=== PATIENT | female | born 1960 | race Caucasian/White ===

== ENCOUNTER 2017-04-27 08:33 | Emergency (ER) | payer SELFPAY ==
[~2017-04-27] VITALS: Ht 170.2 cm; Wt 75.0 kg
[~2017-04-27 08:33] MED LIST: ALBUTEROL S2.5 MG/.5 IN; ALBUTEROL SUL0.083 % IN; AMOXICILLIN500 MG PO; CLEOCIN150 MG PO; DILAUDID 2MG2 MG/TA1 PO; FLEXERIL OR; MORPHINE SUL30 M3 PO; MUCINEX600 MG PO; MULTI VIT PO; NAPROSYN500 MG OR; NO MEDS; NORCO1 TA1 PO; ULTRAM50 MG OR; ZOFRAN4 MG/TAB PO
[2017-04-27] MEDS ORDERED: DILAUDID8 MG PO (08:52)
[2017-04-27] MEDS ORDERED: MORPHINE SUL30 MG PO (08:52)
[2017-04-27 10:13] LABS: HEMATOCRIT 39.1 % (37.0-47.0); HEMOGLOBIN 12.9 g/dl (12.0-16.0); IMMATURE GRANULOCYTES 0.3 % (0.0-1.0); MEAN CELL VOLUME 85.4 fL CALC (80.0-100.0); MEAN CORPUSCULAR HGB 28.2 pG CALC (26.0-32.0); NEUT# 4.92 thou/uL (2.00-7.15); RED BLOOD COUNT 4.58 mill/uL (4.20-5.60); RED CELL DISTRI WIDTH 13.2 % (11.5-15.5)
[2017-04-27 10:20] LABS: ANION GAP 17 (6-22 (CALC)); BUN 16 mg/dL (7-17); BUN/CREATININE RATIO 19 (12-20 (CALC)); CARBON DIOXIDE 23 mmol/l (22-30); CHLORIDE 106 mmol/l (95-108); CREATININE 0.8 mg/dL (0.5-1.0); GFR > 60 ML/MIN (>=60 (CALC)); GFR FOR AFR.AMER. > 60 ML/MIN (>=60 (CALC)); GLUCOSE 78 mg/dL (65-105); LIPASE 65 u/l (23-300); POTASSIUM 3.7 mmol/l (3.5-5.1); SODIUM 142 mmol/l (137-146)
[2017-04-27] MEDS ORDERED: PERCOCET 5/321 COMBO PO (11:21)
[2017-04-27 11:50] VITALS: BP 116/66
== END 2017-04-27 11:50 | disposition home or self-care (01) | DRG 552 ==
LOC: ED 08:33
PROVIDERS: Emergency Medicine
DX: M54.42 Lumbago with sciatica, left side (principal); F17.210 Nicotine dependence, cigarettes, uncomplicated; J45.909 Unspecified asthma, uncomplicated

== ENCOUNTER 2017-08-31 09:53 | Emergency (ER) | payer MEDICAID ==
[~2017-08-31] VITALS: Ht 170.2 cm; Wt 80.0 kg
[~2017-08-31 09:53] MED LIST changes: +DILAUDID8 MG PO; +MORPHINE SUL30 MG PO; +PERCOCET 5/321 COMBO PO
[2017-08-31] MEDS ORDERED: CIPROFLOXACN750 MG PO (10:18)
[2017-08-31] MEDS ORDERED: CORTISPORIN OTI10 ML AS (10:20)
[2017-08-31 10:26] VITALS: BP 130/73
[2017-09-01] MEDS ORDERED: PENICILLN VK500 MG PO (15:38)
[2017-09-01] MEDS ORDERED: PERCOCET 5/325M1 TAB PO (15:38)
== END 2017-08-31 10:30 | disposition home or self-care (01) | DRG 156 ==
LOC: ED 09:53
DX: H60.502 Unspecified acute noninfective otitis externa, left ear (principal); H92.02 Otalgia, left ear

== ENCOUNTER 2017-09-01 15:04 | Emergency (ER) | payer MEDICAID ==
[~2017-09-01] VITALS: Ht 170.2 cm; Wt 77.2 kg
[~2017-09-01 15:04] MED LIST changes: +CIPROFLOXACN750 MG PO; +CORTISPORIN OTI10 ML AS
[2017-09-01] MEDS ORDERED: PERCOCET 5/325M1 TAB PO (15:38)
[2017-09-01] MEDS ORDERED: PENICILLN VK500 MG PO (15:38)
[2017-09-01 15:50] VITALS: BP 110/60
== END 2017-09-01 15:55 | disposition home or self-care (01) | DRG 159 ==
LOC: ED 15:04
DX: K08.89 Other specified disorders of teeth and supporting structures (principal); F17.210 Nicotine dependence, cigarettes, uncomplicated; R60.9 Edema, unspecified; R68.84 Jaw pain; R11.0 Nausea

== ENCOUNTER 2018-09-02 15:45 | Emergency (ER) | payer MEDICAID ==
[~2018-09-02] VITALS: Ht 170.2 cm; Wt 80.9 kg
[~2018-09-02 15:45] MED LIST changes: +CYMBALTA30 MG PO; +DILAUDID PO; +FLEXERIL5 MG PO; +PENICILLN VK500 MG PO; +PERCOCET 5/325M1 TAB PO
[2018-09-02 18:30] VITALS: BP 91/55
== END 2018-09-02 18:50 | disposition home or self-care (01) ==
LOC: ED 15:45
DX: S93.402A Sprain of unspecified ligament of left ankle, initial encounter (principal); S20.219A Contusion of unspecified front wall of thorax, initial encounter; S80.211A Abrasion, right knee, initial encounter; F17.210 Nicotine dependence, cigarettes, uncomplicated; W10.9XXA Fall (on) (from) unspecified stairs and steps, initial encounter; Y92.009 Unspecified place in unspecified non-institutional (private) residence as the place of occurrence of the external cause

== ENCOUNTER 2021-09-12 22:04 | Emergency (ER) | payer OTHER ==
[~2021-09-12] VITALS: Ht 170.2 cm; Wt 81.0 kg
[2021-09-12 22:54] LABS: HEMATOCRIT 41.1 % (37.0-47.0); HEMOGLOBIN 13.6 g/dl (12.0-16.0); IMMATURE GRANULOCYTES 0.1 % (0.0-5.0); MEAN CELL VOLUME 81.5 fL CALC (80.0-100.0); MEAN CORPUSCULAR HGB CONC 33.1 g/dL CAL (32.0-36.0); NEUT# 7.11 thou/uL (2.00-7.15); RED BLOOD COUNT 5.04 mill/uL (4.20-5.60)
[2021-09-12 23:07] LABS: ALBUMIN 4.2 g/dL (3.2-5.0); ALKALINE PHOSPHATASE 109 u/l (38-126); ANION GAP 12 (6-22 (CALC)); BUN 16 mg/dL (7-17); BUN/CREATININE RATIO 20 (12-20 (CALC)); CARBON DIOXIDE 29 mmol/l (22-30); CHLORIDE 100 mmol/l (95-108); CREATININE 0.8 mg/dL (0.5-1.0); ETHYL ALCOHOL 0 mg/dl (0-30); GFR > 60 ML/MIN (>=60 (CALC)); GFR FOR AFR.AMER. > 60 ML/MIN (>=60 (CALC)); POTASSIUM 3.6 mmol/l (3.5-5.1); SGOT/AST 28 u/l (14-36); SODIUM 137 mmol/l (137-146); TOTAL PROTEIN 8.3 g/dL (6.3-8.2)
[2021-09-12 23:08] LABS: BILIRUBIN, TOTAL 0.5 mg/dL (0.0-1.4)
[2021-09-13] MEDS ORDERED: ULTRAM50 M1 PO (00:21)
[2021-09-13 00:26] VITALS: BP 121/52
== END 2021-09-13 00:33 | disposition home or self-care (01) ==
LOC: ED 22:04
PROVIDERS: Emergency Medicine
DX: S20.211A Contusion of right front wall of thorax, initial encounter (principal); F17.200 Nicotine dependence, unspecified, uncomplicated; W01.190A Fall on same level from slipping, tripping and stumbling with subsequent striking against furniture, initial encounter; Y92.009 Unspecified place in unspecified non-institutional (private) residence as the place of occurrence of the external cause